=== PATIENT | male | born 1970 | race Caucasian/White ===

== ENCOUNTER 2020-02-25 14:37 | Outpatient (CLI) | payer BC, SELFPAY ==
--- NOTE | 2020-02-25 13:45 | DI.RAD_ITS ---
EXAM: XR ANKLE LT COMPLETE CLINICAL HISTORY: left ankle pain TECHNIQUE: 2D digital imaging was performed. COMPARISON: No exams were available for comparison FINDINGS: The ankle joint space is well maintained. There is minimal periarticular spurring. No talar dome de fect or ankle mortise widening is seen. A bone island is noted in the talus. IMPRESSION: Minimal degenerative changes.
== END 2020-02-25 14:57 ==
PROVIDERS: PCP Family Medicine; Referring Provider Family Medicine; Visit Provider Student in an Organized Health Care Education/Training Program
DX: M19.072 Primary osteoarthritis, left ankle and foot (principal); M25.572 Pain in left ankle and joints of left foot
CPT/HCPCS: 73610

== ENCOUNTER 2020-03-03 01:04 | Outpatient (CLI) | payer BC, SELFPAY ==
--- NOTE | 2020-03-03 08:50 | DI.MRI_ITS ---
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 TECHNIQUE: Multiplanar multisequence MRI was performed. COMPARISON: CR XR ANKLE LT COMPLETE from 02/25/2020 FINDINGS: MR examination of the ankle was performed according to the usual protocol. There is in area of abnormal bony signal involving the medial aspect of the talus beneath the talar d ome medially measuring up to about 15 x 20 by 20 millimeters in diameter. The overlying cortex appea rs intact. There are tiny subchondral cysts cysts noted, the largest measuring about 2 x 5 millimete rs in diameter. No definite cartilage defect seen involving the talus or adjoining tibia. No depres selina of the cortex of the talar dome. No other significant bony signal abnormality seen in the region of the ankle. Ligamentous structures of the ankle appear normal including the ligaments of the tibiotalar, talofibu lar, and tibiofibular joints. Subtalar joints and supporting ligamentous structures appear intact. No tendinous abnormality identified involving the medial, lateral, or anterior tendons. Achilles ten don and plantar fascia show normal signal No mass lesion or ganglion cyst seen in the region of the ankle. IMPRESSION: Osseous signal abnormality and mild subchondral cyst formation of the talar dome medially, no discrete cortical talar dome defect id entified. No defined articular cartilage abnormality. No other significant findings on examination of the ankle. DATA REPOSITORY:
== END 2020-03-03 01:24 ==
PROVIDERS: PCP Family Medicine; Visit Provider Student in an Organized Health Care Education/Training Program
DX: M95.8 Other specified acquired deformities of musculoskeletal system (principal); M85.672 Other cyst of bone, left ankle and foot
CPT/HCPCS: 73721

== ENCOUNTER 2020-07-28 19:06 | Outpatient (REF) | payer BC, SELFPAY ==
[2020-07-28 16:07] LABS: Hemoglobin A1C 4.9 % (<5.7)
[2020-07-28 16:20] LABS: Anion Gap 10.3 mmol/L (3-11); BUN 11 mg/dL (7-18); CO2 28.7 mmol/L (21.0-32.0); Calcium 9.4 mg/dL (8.5-10.1); Calculated LDL 90 mg/dL (<100); Chloride 103 mmol/L (98-107); Cholesterol 151 mg/dL (<200); Estimated GFR 49.54 (mL/min/1.73m2); Glucose 98 mg/dL (74-106); HDL Cholesterol 35 mg/dL (40-60); Sodium 142 mmol/L (136-145); TSH (W/Ref FT4) 0.72 uIU/mL (0.36-3.74); Triglyceride 130 mg/dL (<150)
[2020-07-28 22:46] LABS: PSA, Screening 0.7 ng/mL (0.0-3.5)
== END 2020-07-28 19:26 ==
LOC: NCHCN 19:06
PROVIDERS: PCP Family Medicine; Visit Provider Nurse Practitioner Family
DX: Z00.00 Encounter for general adult medical examination without abnormal findings (principal)
CPT/HCPCS: 80048; 80061; 84153; 83036; 84443

== ENCOUNTER 2020-08-07 10:52 | Outpatient (CLI) | payer BC, SELFPAY ==
--- NOTE | 2020-08-07 10:15 | DI.RAD_ITS ---
EXAM: XR THUMB LT CLINICAL HISTORY: pain. TECHNIQUE: 2D digital imaging was performed. COMPARISON: CR LEFT INDEX FINGER from 06/27/2012 FINDINGS: No evidence of fracture or dislocation. 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 This measures approximately 7 by 4 millimeters. No no lytic osseous les ions evident. IMPRESSION: DATA REPOSITORY: RADIATION DOSE DELIVERED:
== END 2020-08-07 11:12 ==
PROVIDERS: PCP Family Medicine; Visit Provider Physician Assistant Surgical
DX: M79.645 Pain in left finger(s) (principal); D16.12 Benign neoplasm of short bones of left upper limb
CPT/HCPCS: 73140

== ENCOUNTER 2020-08-26 01:54 | Outpatient (CLI) | payer BC, SELFPAY ==
--- NOTE | 2020-08-26 07:30 | DI.MRI_ITS ---
EXAM: MR LOWER JOINT LT WO CLINICAL HISTORY: Persistent pain,TALUS BONE MARROW LESION,TALUS CLOSED FX,OSTEOCHONDRAL DEFE TECHNIQUE: Multiplanar multisequence MRI was performed without intravenous contrast. COMPARISON: CR XR ANKLE LT COMPLETE from 02/25/2020 MR MR LOWER JOINT LT WO from 03/03/2020 FINDINGS: SKIN: There are 2 findings on the undersurface of the foot subcutaneous region. First the there is a gain noted susceptibility artifact on the plantar subcutaneous tissues located 4 centimetres anterior to the inferior aspect the calcaneus plantar fascia. This implies the presence of a foreign body at this level. Plain films recommended. Secondly, there is significant subcutaneous signal abnormality in the plantar fat pad subjacent to th e calcaneus which has increased from the prior study. There does not appear to be an obvious tract a lthough this does extend from the under surface of the calcaneus to the skin level. There is no abnormal intraosseous signal within the overlying calcaneus to suggest osteomyelitis nor significant thickening, tear, or signal abnormality in the plantar fascia which is at this level. BONES/JOINTS: Abnormality previously described in the medial talar dome is again noted. There multip le degenerative subarticular cyst at this level with subjacent bone edema in the talus again noted an d most medially there is some progression in the most medial aspect talar dome at this level which wi ll be at risk for developing an osteochondral defect. There is no signal abnormality in the lateral aspect of the talar dome nor in the malleoli nor more distally in the talus nor in the sustentacular talus, navicular, cuneiform and cuboid bones. Subtalar joint appears unremarkable. LIGAMENTS: The tibiofibular and calcaneofibular ligaments are intact. The anterior and posterior talo fibular ligaments are intact. The deltoid ligament is intact. SINUS TARSI: Interosseous ligament is intact. There is no loss of the normal fat signal in this space . MUSCULOTENDINOUS STRUCTURES: Achilles tendon: Unremarkable. No evidence of tear nor tendinitis/tendinosis. Plantar fascia: Unremarkable. No evidence of tear, abnormal thickening, nor abnormal nodularity. Anterior Extensor tendons: Unremarkable. Medial Tendons: Posterior Tibialis: Unremarkable. No tear or tenosynovitis evident. Flexor Digitorum longus: Unremarkable. No tear or tenosynovitis evident. Flexor Hallicus longus: Unremarkable. No tear or tenosynovitis evident. Lateral Tendons: Peroneus longus: Unremarkable. No tear nor tenosynovitis evident. Peroneus brevis:Unremarkable. No tear nor tenosynovitis evident. SOFT TISSUES: Abnormal findings as above OTHER FINDINGS: None. IMPRESSION: 1. Compared to the prior MRI of February 2020 there is increasing subcutaneous signal abnormality in th e plantar fat pad extending through the entire thickness of the fat pad at this level. Without an ob vious percutaneous tract at this exact level. There is also no obvious thick no abnormality nor thic kening of the plantar fascia itself at this level nor abnormal intraosseous signal in the inferior ca lcaneus nor calcaneal spur. Correlation with any prior injections at this site is recommended. There is no intraosseous signal to suggest osteomyelitis of the calcaneus. 2. Approximately 3-4 cm anterior to this is susceptibility artifact in the superficial subcutaneous t issue on the plantar aspect of the foot consistent with the presence of a significant foreign body. Recommend plain films to locate a subtle foreign body metallic density at this level. The abnormal p lantar fat pad signal appears separate from this foreign body. 3. No abnormality of the Achilles tendon evident. No tear of the plantar fascia. 4Increasing degenerative subarticular cyst in the medial talar dome. There is some intraosseous davidson a at this level also again noted which is confined to the medial talus at this level. There is no di stinct osteochondral defect at this level at this time. DATA REPOSITORY:
== END 2020-08-26 01:55 ==
LOC: DI 01:54
PROVIDERS: PCP Family Medicine; Visit Provider Student in an Organized Health Care Education/Training Program
DX: M95.8 Other specified acquired deformities of musculoskeletal system (principal); S92.102D Unspecified fracture of left talus, subsequent encounter for fracture with routine healing; M79.5 Residual foreign body in soft tissue
CPT/HCPCS: 73721

== ENCOUNTER 2020-10-14 02:57 | Outpatient (CLI) | payer BC, SELFPAY ==
[2020-10-14 10:08] LABS: Source Nasal/Nares
[2020-10-14 15:23] LABS: COVID-19 PCR Negative (Negative)
== END 2020-10-14 02:58 | disposition home or self-care (01) ==
LOC: LBO 02:57
PROVIDERS: Surgery; PCP Family Medicine; Visit Provider Physical Therapy Assistant
DX: Z20.822 Contact with and (suspected) exposure to COVID-19 (principal)
CPT/HCPCS: 87635

== ENCOUNTER 2020-10-16 06:21 | Day surgery (SDC) | payer BC, SELFPAY ==
[2020-10-16 06:20] VITALS: BP 135/75; PULSE 87; RESP 18; TEMP 36.4; O2SAT 98
[2020-10-16] MEDS: Lactated Ringers 1,000 ML 80 ML IV (06:48)
--- NOTE | 2020-10-16 07:58 | W.PM.DSUDISC ---
Discharge Plan Disposition Patient Disposition: HOME Condition: Good Discharge Details Reason For Visit: colon scope Attending Provider: Anisha Melendez Primary Care Provider: French Pearson Home Meds and New Rx's Prescriptions: Continued polyethylene glycol 3350 17 gram/dose powder 238 g PO ONCE Qty: 238 RF: 0 bisacodyl [Dulcolax (bisacodyl)] 5 mg tablet,delayed release (DR/EC) 5 mg PO ONCE Qty: 4 RF: 0 Discharge Instructions Additional Instructions: Findings:very few/very small divertic. incomplete- will need to do a barium enema Follow up: Please call if you develop: fevers >101.5 Nausea or Vomiting Abdominal pain that is not transient DAY SURGERY UNIT POST COLONOSCOPY INSTRUCTIONS 1. Because there will be medication in your system for the next 24 hours, you may feel a little sleepy. Your coordination will be affected. Therefore: a. Do not drive or operate dangerous equipment for 24 hours. b. Do not drink alcohol beverages for 24 hours (not even beer). c. Plan to go home and rest for the day. 2. Generally there are no restrictions on your activity after a day or so has gone by, but you may feel a bit fatigued for a few days. 3 After you arrive home you may have a light meal and return to a normal diet as you can tolerate it without feeling sick to your stomach. 4. After surgery, you may feel pain or discomfort. This should be only transient, but if it persists please contact your doctor. 5. If there are any questions regarding the findings of your procedure, please feel free to contact your doctor. 6. If you are unable to contact your doctor with a problem, contact the hospital at [phone]. 7. Continue all your regular medications unless directed otherwise. I understand the above instructions and have no questions. Signature of Patient or Responsible Adult Escort Date/Time Name of Responsible Adult Escort Signature of Nurse Date/Time Activity:: no lifting over 20#'s or strenuous acitivty x 24 hrs Diet:: small light meals x 24 hrs Discharge Orders Discharge Orders: Discharge Order (Routine); Ordered 10/16/20 Ordered By: Anisha Melendez DS: Diagnosis Discharge Diagnosis (1) Diverticula of colon: Status: Acute
--- NOTE | 2020-10-16 08:10 | W.COLOREPORT ---
Date of service: 10/16/20 Time of Service: 08:10 Colonoscopy Report Date of procedure: 10/16/20 Pre-op diagnosis general: CRC scree Post-op diagnosis procedure note: other (divertic ) Procedure: flex sig Surgeon: Anisha Melendez Anesthesia Type: General:No Airway Estimated blood loss (mL): 0 Pathology: none sent Complications: None Disposition: same day Prep: Miralax/Dulcolax Procedure Description: After informed consent was obtained the patient was taken to the procedure room and placed in a left decubitous position. Monitors were applied and a time out was done. The patients name, date of , procedure, allergies to medications and metal in their body was reviewed. The patient was then sedated. Once sedated and comfortable a rectal exam was done which shows external hemorrhoids. Internal exam revealed a normal sphincter tone and no palpable masses. The scope was then introduced and retrofelexed. Grade I internal hemorrhoids were identified. The prep was good. The scope is passed up to the sigmoid flexure. Unfortunately after multiple maneuvers, and repositing the pt to supine, I could not advance to scope through the splenic flexure. The scope was then slowly retracted back into the rectum. There were no polyps or AVMs visualized today. The mucosa is pink and healthy. He does have very few small scatered diverticula. The Scope was removed and the patient was woken up and taken back to Same day surgery in stable condition. The patient tolerated the procedure well and there were no immediate complications. Follow up: The patient needs to have a barium enema for completeness
[2020-10-16 08:35] VITALS: BP 122/80; PULSE 61; RESP 18; TEMP 36.3; O2SAT 100
== END 2020-10-16 09:05 | disposition home or self-care (01) ==
PROVIDERS: PCP Family Medicine; Visit Provider Surgery
PROC: 0DJD8ZZ Inspection of Lower Intestinal Tract, Via Natural or Artificial Opening Endoscopic (ICD-10-PCS; CPT 45378; principal; 2020-10-16 07:30)
DX: Z12.11 Encounter for screening for malignant neoplasm of colon (principal); K57.30 Diverticulosis of large intestine without perforation or abscess without bleeding
CPT/HCPCS: 45378; J2001

== ENCOUNTER 2020-11-11 02:05 | Outpatient (CLI) | payer BC, SELFPAY ==
--- NOTE | 2020-11-11 06:30 | DI.RAD_ITS ---
Exam(s) RF BARIUM ENEMA EXAM: RF BARIUM ENEMA CLINICAL HISTORY: incomplete CE,DIVERTICULA OF COLON,SCREENING FOR COLON CA COMPARISON: No exams were available for comparison TECHNIQUE: 2D and realtime digital imaging was performed. CONTRAST MATERIAL: Barium and air contrast was administered. FINDINGS: The colon demonstrates no structural abnormalities including stricture,dilation, adhesion, or mass. T here are scattered diverticula throughout the colon. No evidence of obstruction. The appendix is vi sualized. IMPRESSION: 1. Diverticulosis of the colon. 2. No evidence of obstruction or colonic mass. RADIATION DOSE DELIVERED: winifred Nesbitt=81.9 mGy
== END 2020-11-11 02:25 ==
PROVIDERS: PCP Nurse Practitioner Family; Visit Provider Surgery
DX: K57.30 Diverticulosis of large intestine without perforation or abscess without bleeding (principal); Z12.11 Encounter for screening for malignant neoplasm of colon
CPT/HCPCS: 74270

== ENCOUNTER 2021-08-24 11:55 | Outpatient (CLI) | payer BC, SELFPAY ==
--- NOTE | 2021-08-24 11:45 | RT.EKG_ITS ---
APPROVED REPORT Exam: Resting ECG Reason for Exam: tachycardia Patient Location: O HR:62 bpm ECG Measurements Heart Rate 62 AXIS OR 139 P 67 QRSd 78 QRS 68 QT 425 T 50 QTc 432 Conclusion Sinus rhythm...normal P axis, V-rate 60- 99 Probable left ventricular hypertrophy...multiple LVH criteria ST elev, probable normal early repol pattern...ST elevation, age<55
== END 2021-08-24 11:56 | disposition home or self-care (01) ==
LOC: DI.CM 11:57
PROVIDERS: PCP Nurse Practitioner Family; Visit Provider Family Medicine
DX: R00.0 Tachycardia, unspecified (principal)
CPT/HCPCS: 93010

== ENCOUNTER 2021-08-31 03:57 | Outpatient (CLI) | payer BC, SELFPAY ==
[2021-08-31 09:08] LABS: HGB 14.9 g/dL (13.5-17.5); MCH 29.9 pg (27.0-33.0); MCHC 33.9 % (32.0-36.0); MCV 88.4 fL (80-95); MPV 9.4 fL (8.0-11.0); Platelet Count 189 10^3/uL (130-400); RBC 4.98 10^6/uL (4.36-5.78); RDW 12.5 % (11.8-14.1); RDW-SD 40.7 fL; WBC 5.91 10^3/uL (4.4-10.8)
[2021-08-31 09:09] LABS: Bilirubin Negative (Negative); Blood Negative (Negative); Clarity Clear (Clear); Glucose Negative (Negative); Ketones Negative (Negative); Leukocyte Esterase Negative (Negative); Nitrite Negative (Negative); Specific Gravity 1.025 (1.005-1.025); Urobilinogen 0.2 EU/dL (Up TO 0.2)
[2021-08-31 10:42] LABS: ALT 28 U/L (16-63); AST 24 U/L (15-37); Albumin 4.2 g/dL (3.4-5.0); Alkaline Phosphatase 89 U/L (46-116); Anion Gap 7.1 mmol/L (3-11); BUN 17 mg/dL (7-18); Bilirubin, Total 1.1 mg/dL (0.2-1.0); CO2 31.9 mmol/L (21.0-32.0); CREATININE 1.4 mg/dL (0.70-1.30); Calcium 9.1 mg/dL (8.5-10.1); Calculated LDL 107 mg/dL (<100); Chloride 104 mmol/L (98-107); Cholesterol 163 mg/dL (<200); Estimated GFR 53.43 (mL/min/1.73m2); Glucose 87 mg/dL (74-106); HDL Cholesterol 47 mg/dL (40-60); Potassium 4.1 mmol/L (3.5-5.1); Sodium 143 mmol/L (136-145); TSH (W/Ref FT4) 1.02 uIU/mL (0.36-3.74); Total Protein 6.7 g/dL (6.4-8.2); Triglyceride 49 mg/dL (<150)
[2021-09-01 10:01] LABS: Hepatitis C Ab w Rflx HCV PCR Negative (Negative)
== END 2021-08-31 03:58 | disposition home or self-care (01) ==
LOC: LBO 03:57
PROVIDERS: PCP Nurse Practitioner Family; Visit Provider Family Medicine
DX: R00.0 Tachycardia, unspecified (principal); Z11.59 Encounter for screening for other viral diseases; Z13.6 Encounter for screening for cardiovascular disorders; R79.89 Other specified abnormal findings of blood chemistry; I10 Essential (primary) hypertension
CPT/HCPCS: 36415; 80053; 80061; 85027; 86803; 81003; 84443

== ENCOUNTER 2023-01-30 09:05 | Outpatient (CLI) | payer BC, SELFPAY ==
[2023-01-30 12:17] LABS: Abs Immature Grans 0.01 10^3/uL (0.0-0.06); Absolute Basophil Count 0.01 10^3/uL (0.0-0.2); Absolute Eosinophil Count 0.01 10^3/uL (0.0-0.7); Absolute Lymphocyte Count 0.44 10^3/uL (1.2-3.4); Absolute Monocyte Count 0.12 10^3/uL (0.1-0.8); Absolute Neutrophil Count 1.72 10^3/uL (1.2-6.7); Basophils % 0.4; Eosinophils % 0.4; HCT 40.8 % (40.0-50.0); HGB 13.9 g/dL (13.5-17.5); Immature Grans % 0.4; MCH 30.3 pg (27.0-33.0); MCHC 34.1 % (32.0-36.0); MCV 89 fL (80-95); MPV 10.2 fL (8.0-11.0); Monocytes % 5.2; Neutrophils % 74.6; RBC 4.58 10^6/uL (4.36-5.78); RDW 12.1 % (11.8-14.1); RDW-SD 39.6 fL; WBC 2.31 10^3/uL (4.4-10.8)
[2023-01-30 12:31] LABS: Diff Comment Diff Reviewed; Platelet Count 85 10^3/uL (130-400); RBC Morphology Normal
[2023-01-30 12:35] LABS: ALT 42 U/L (16-63); AST 32 U/L (15-37); Albumin 3.7 g/dL (3.4-5.0); Alkaline Phosphatase 93 U/L (46-116); Anion Gap 6.5 mmol/L (3-11); BUN 9 mg/dL (7-18); Bilirubin, Total 0.9 mg/dL (0.2-1.0); CO2 29.5 mmol/L (21.0-32.0); CREATININE 1.4 mg/dL (0.70-1.30); Calcium 8.4 mg/dL (8.5-10.1); Chloride 106 mmol/L (98-107); Estimated GFR 60.47 (mL/min/1.73m2); Glucose 115 mg/dL (74-106); Sodium 142 mmol/L (136-145); Total Protein 6.4 g/dL (6.4-8.2)
[2023-01-30 18:17] LABS: PSA, Screening 0.6 ng/mL (<=3.5)
[2023-01-31 10:37] LABS: Lyme Ab w Rflx to Lyme Confirm Negative (Negative)
[2023-02-02 10:03] LABS: B. miyamotoi PCR Negative (Negative); Babesia divergens/MO-1 Negative (Negative); Babesia duncani Negative (Negative); Babesia microti Negative (Negative); Ehrlichia chaffeensis Negative (Negative); Ehrlichia ewingii/canis Negative (Negative); Ehrlichia muris eauclairensis Negative (Negative)
[2023-02-02 10:55] LABS: Anaplasma phagocytophilum Positive (Negative)
== END 2023-01-30 09:06 | disposition home or self-care (01) ==
LOC: LOS 09:05
PROVIDERS: PCP Nurse Practitioner Family; Referring Provider Nurse Practitioner Family; Visit Provider Nurse Practitioner Family
DX: M54.50 Low back pain, unspecified (principal); R50.9 Fever, unspecified; N40.0 Benign prostatic hyperplasia without lower urinary tract symptoms
CPT/HCPCS: 36415; 80048; 80053; 84153; 87798; 85025; 86618

== ENCOUNTER 2023-01-30 22:57 | Outpatient (CLI) | payer BC, SELFPAY ==
--- NOTE | 2023-01-30 09:15 | DI.RAD_ITS ---
Exam(s) XR LUMBAR SPINE COMPLETE EXAM: XR LUMBAR SPINE COMPLETE CLINICAL HISTORY: acute back pain with fever, M54.9. TECHNIQUE: 2D digital imaging was performed of the lumbar spine. Five images were obtained. AP, la teral, right oblique, left oblique and L5-S1 spot views were obtained. COMPARISON: CR LUMBAR SPINE COMPLETE from 10/05/2013 FINDINGS: BONES: No fracture or destructive lesion. There are endplate osteophytes at multiple levels of the luis antonio mbar spine. No facet hypertrophy identified. DISKS: There is mild disc space narrowing at L2-L3 ALIGNMENT: There is a mild right convex curvature of the lumbar spine. No spondylolysis or spondylol isthesis. SOFT TISSUE: Normal. IMPRESSION: Degenerative changes are seen in the lumbar spine. No destructive changes are seen. DATA REPOSITORY: RADIATION DOSE DELIVERED:
== END 2023-01-30 23:17 ==
LOC: DI 22:58
PROVIDERS: PCP Nurse Practitioner Family; Visit Provider Nurse Practitioner Family
DX: M54.9 Dorsalgia, unspecified (principal); M51.36 Other intervertebral disc degeneration, lumbar region
CPT/HCPCS: 72110

== ENCOUNTER 2023-02-07 08:59 | Emergency (ER) | payer BC, SELFPAY ==
--- NOTE | 2023-02-07 09:00 | DI.CT_ITS ---
Exam(s) CT ABDOMEN PELVIS WO EXAM: CT ABDOMEN PELVIS WO CLINICAL HISTORY: left flank pain, r/o stone. TECHNIQUE: Imaging Protocol: Axial computed tomography images with coronal and sagittal reformatted images were created and reviewed. Oral: no COMPARISON: No exams were available for comparison FINDINGS: ABDOMEN: Lung Bases: Normal where visualized. Liver: Normal density. No measurable mass. Gallbladder and biliary tract: No radiodense calculus or dilation. Pancreas: Normal density, no abnormal calcifications or inflammatory process. Spleen: Normal. Kidneys: Normal size, contour and axis. Multiple tiny punctate nonobstructing stones in both kidneys. Mild left hydronephrosis secondary to a 4 millimeter stone just above the level of the ureterovesic al junction. No masses seen. Adrenal glands: No masses seen. Lymph nodes: Within normal limits. Abdominal Aorta: Abdominal portion non-dilated. PELVIS: Bladder: Nearly empty. Not well evaluated. No gross wall thickening. Bowel: No obstruction or bowel wall thickening. Appendix normal. Peritoneal cavity: No ascites, collection or mesenteric inflammatory response. Reproductive organs: Within normal limits. Bones: Unremarkable for age. IMPRESSION: Mild left hydronephrosis secondary to a 4 millimeter stone just above the ureterovesical junction. Multiple tiny nonobstructing stones are noted in both kidneys. RADIATION DOSE DELIVERED: 585.22mGy.cm Total DLP DATA REPOSITORY: All CT scans at this facility are submitted to the National Radiology Data Registry (NRDR) Dose Index Registry (DIR) with the [employer] ([employer]). RADIATION OPTIMIZATION: All CT scans at this facility use at least one of these dose optimization te chniques: automated exposure control; mA and/or kV adjustment per patient size (includes targeted exa ms where dose is matched to clinical indication); or iterative reconstruction.
[2023-02-07 09:02] VITALS: BP 123/80; PULSE 80; RESP 18; TEMP 35.9; O2SAT 100
--- NOTE | 2023-02-07 09:09 | W.ED.GENAD ---
Discharge Plan Disposition Patient Disposition: Home Condition: Good Discharge Details Clinical Impression: Kidney stone Primary Care Provider: Fernie Julian ED Provider: Angel Mao Home Meds and New Rx's Prescriptions: New ketorolac 10 mg tablet 10 mg PO TID 5 Days Qty: 15 0RF No Action tamsulosin [Flomax] 0.4 mg capsule 0.4 mg PO DAILY Qty: 90 4RF doxycycline hyclate 100 mg tablet 100 mg PO BID Qty: 20 0RF Discharge Instructions Instructions: Kidney Stones (ED) Additional Instructions: At this time you have evidence of a small kidney stone. This is likely the cause of your symptoms. This should pass within the next 12 to 48 hours, if not earlier. Please drink plenty of fluids, 10 to 12 cups/day at least. Please take the Toradol as directed which has been sent to your pharmacy and 1000 mg of Tylenol every 6 hours as needed for pain. These are the maximum doses of these medicines. Please take the Flomax as directed. This will help in expediting the passage of your kidney stone. If your pain stops, you can stop taking the Flomax. Please strain your urine to collect the stone. This can then be analyzed by your family doctor. If you do not have resolution of your symptoms after 48 to 72 hours please follow-up closely with your family doctor or return here for reassessment. If you notice any worsening of your symptoms, or any new symptoms such as inability to urinate, vomiting, diarrhea, fever, chills, shortness of breath, chest pain, numbness, weakness, or fainting , please return immediately to the emergency department for reevaluation. Please follow up with your primary care provider as soon as possible for reassessment and reevaluation. As always, it was a pleasure participating in your medical care today. 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 He states that it feels identical to his previous kidney stone. He denies any fever or chills. He does admit to a feeling of constant urgency for urination. He denies seeing any blood in his urine. He has not taken anything for the pain. No other complaints at this time. No other modifying factors. Physical exam demonstrates no flank or CVA tenderness. No abdominal tenderness. No guarding or rebound. No genital tenderness. Symptoms appear concerning for kidney stone. Differential also includes diverticulitis but this is less likely. We will give Toradol, Tylenol, get a CT renal study, monitor closely reassess gently rehydrate and give Flomax. 10:[address] scan shows evidence of a 4 mm kidney stone. Laboratory work-up has returned, renal function stable at baseline. Urinalysis negative for evidence of infection. On reassessment patient has near complete resolution of his pain. He feels well and feels comfortable going home. Will give prescription for Toradol at home as well as recommendation for continued Flomax. Will give urine strainer for home for stone urinalysis/analysis. Discussed red flags which to return. I have extensively reviewed the treatment plan and discharge instructions with the patient. I have addressed all patient concerns at this time. The patient was made aware of what symptoms to monitor for that would warrant a return to the emergency department. Discussed the plan with the patient, they demonstrate verbal understanding and agreement with our assessment and plan at this time. The documentation in this chart was dictated using [employer] dictation software. Please excuse any dictation errors. INDINGS: ABDOMEN: Lung Bases: Normal where visualized. Liver: Normal density. No measurable mass. Gallbladder and biliary tract: No radiodense calculus or dilation. Pancreas: Normal density, no abnormal calcifications or inflammatory process. Spleen: Normal. Kidneys: Normal size, contour and axis. Multiple tiny punctate nonobstructing stones in both kidneys. Mild left hydronephrosis secondary to a 4 millimeter stone just above the level of the ureterovesical junction. No masses seen. Adrenal glands: No masses seen. Lymph nodes: Within normal limits. Abdominal Aorta: Abdominal portion non-dilated. PELVIS: Bladder: Nearly empty. Not well evaluated. No gross wall thickening. Bowel: No obstruction or bowel wall thickening. Appendix normal. Peritoneal cavity: No ascites, collection or mesenteric inflammatory response. Reproductive organs: Within normal limits. Bones: Unremarkable for age. IMPRESSION: Mild left hydronephrosis secondary to a 4 millimeter stone just above the ureterovesical junction. Multiple tiny nonobstructing stones are noted in both kidneys. HPI General Date/Time Provider Initiated Documentation: 02/07/23 09:00. 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 He states that it feels identical to his previous kidney stone. He denies any fever or chills. He does admit to a feeling of constant urgency for urination. He denies seeing any blood in his urine. He has not taken anything for the pain. No other complaints at this time. No other modifying factors. Related Data Home Medications Medication Instructions Recorded Confirmed tamsulosin 0.4 mg capsule (Flomax) 0.4 mg PO DAILY #90 caps 01/11/22 02/07/23 doxycycline hyclate 100 mg tablet 100 mg PO BID #20 tabs 02/02/23 02/07/23 ketorolac 10 mg tablet 10 mg PO TID 5 days #15 tabs 02/07/23 Previous Rx's Medication Instructions Recorded tamsulosin 0.4 mg capsule (Flomax) 0.4 mg PO DAILY #90 caps 01/11/22 doxycycline hyclate 100 mg tablet 100 mg PO BID #20 tabs 02/02/23 ketorolac 10 mg tablet 10 mg PO TID 5 days #15 tabs 02/07/23 Allergies Allergy/AdvReac Type Severity Reaction Status Date / Time No Known Allergies Allergy Verified 02/07/23 09:07 General Stated Complaint: Urinary DEWEY: 3 Review of Systems All systems reviewed & are unremarkable except as noted in HPI and below [facility] All Active Problems (Updated 02/07/23 @ 10:06 by Angel Mao DO) Kidney stone (Chronic) Anaplasmosis (Acute ~01/2023) Restless leg syndrome (Acute) Uses canibus to control. Stage 3a chronic kidney disease (Acute) 08/2021, Cr-1.4 Tachycardia (Acute) Saw farm crops teacher in [facility] who is not concerned. 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 Father BPH (benign prostatic hypertrophy) Alcohol abuse Sister No problems noted. Brother No problems noted. Maternal Grandfather , AGE 80 No problems noted. Paternal Grandfather , AGE 66 Alcohol abuse Maternal Grandmother , AGE 84 No problems noted. Paternal Grandmother , AGE 72 No problems noted. Son No problems noted. Daughter No problems noted. Daughter No problems noted. 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 Pets and animals: Yes Pets and animals: cat(s) and dog(s) Sexually active: Yes Current gender identity: male What is your relationship status?: How often do you talk on the phone with friends or family?: three or more times per week How often do you get together with friends or relatives?: once per week How often do you attend denominational or orthodoxy services?: decline to answer Do you belong to any clubs or organized social groups?: no Panel score (0-1 are the most socially isolated patients): 2 What type of physical activity do you participate in: running Duration: 45-60 minutes/day Frequency: 5-6 times per week Karina/Yazdanism: None Special karina needs: No Seatbelt use: always Helmet use: Yes Helmet use: always Drive intox or ride w/intox substitute bus driver: No Do you feel safe at home: Yes Do you feel safe in your relationship?: Yes Exam Narrative Exam Narrative: 1.Const: Well-nourished, Well-developed, appearing stated age 2.Eyes: PERRL, no conjunctival injection, and symmetrical lids. 3.ENT: Atraumatic external nose and ears. Moist MM. Neck: Symmetric, trachea midline, No thyromegaly. 4.CVS: +S1/S2, No murmurs or gallops. Peripheral pulses 2+ and equal in all extremities. Brisk capillary refill in all extremities. 5.RESP: Unlabored respiratory effort. Clear to auscultation bilaterally. No wheezes rales or rhonchi 6.GI: Soft, Nontender/Nondistended, No hepatosplenomegaly. No guarding or rebound. No flank or CVA tenderness. No genital tenderness on palpation. 7.MSK: Normocephalic/Atraumatic, Extremities w/o deformity or ttp No cyanosis or clubbing, Normal movement of all extremities 8.Skin: Warm, Dry. No rashes or lesions. 9.Neuro: dispatcher maintenance II-XII grossly intact. Sensation grossly intact, no focal neurologic deficits. 10.Psych: (AAO) x3. Appropriate mood and affect Course Vital Signs Vital signs: Vital Signs Temperature 35.9 C L 02/07/23 09:02 Pulse 80 02/07/23 09:02 Respiratory Rate 18 02/07/23 09:02 Blood Pressure 123/80 02/07/23 09:02 Pulse Oximetry 100 02/07/23 09:02 Temperature 35.9 C L 02/07/23 09:02 Temperature Source Tympanic 02/07/23 09:02 Pulse 80 02/07/23 09:02 Respiratory Rate 18 02/07/23 09:02 Blood Pressure 123/80 02/07/23 09:02 Blood Pressure Position Sitting 02/07/23 09:02 Pulse Oximetry 100 02/07/23 09:02 Oxygen Delivery Method Room Air 02/07/23 09:02 Oxygen Flow Rate 0 02/07/23 09:02 Pain Level 5 02/07/23 09:02
[2023-02-07 09:42] LABS: Abs Immature Grans 0.04 10^3/uL (0.0-0.06); Absolute Basophil Count 0.03 10^3/uL (0.0-0.2); Absolute Eosinophil Count 0.04 10^3/uL (0.0-0.7); Absolute Monocyte Count 0.36 10^3/uL (0.1-0.8); Basophils % 0.5; Eosinophils % 0.7; HCT 38.1 % (40.0-50.0); HGB 13.2 g/dL (13.5-17.5); Immature Grans % 0.7; Lymphocytes % 34.6; MCH 30.2 pg (27.0-33.0); MCHC 34.6 % (32.0-36.0); MCV 87 fL (80-95); MPV 8.9 fL (8.0-11.0); Monocytes % 5.9; Neutrophils % 57.6; Platelet Count 287 10^3/uL (130-400); RBC 4.37 10^6/uL (4.36-5.78); RDW-SD 38.2 fL; WBC 6.07 10^3/uL (4.4-10.8)
[2023-02-07] MEDS: Ketorolac 15 MG/ML VIAL IVP (09:47)
[2023-02-07] MEDS: Tamsulosin 0.4 MG CAPCR PO (09:47)
[2023-02-07] MEDS: Normal Saline 1,000 ML 1000 ML IV (09:48)
[2023-02-07] MEDS: ACETAMINOPHEN 1,000 MG/100 ML BTL 400 MG IVPB (09:57)
[2023-02-07 10:00] LABS: ALT 44 U/L (16-63); AST 20 U/L (15-37); Alkaline Phosphatase 115 U/L (46-116); Anion Gap 7.5 mmol/L (3-11); BUN 15 mg/dL (7-18); Bilirubin, Total 0.5 mg/dL (0.2-1.0); CO2 30.5 mmol/L (21.0-32.0); CREATININE 1.4 mg/dL (0.70-1.30); Calcium 8.9 mg/dL (8.5-10.1); Chloride 104 mmol/L (98-107); Estimated GFR 60.47 (mL/min/1.73m2); Glucose 119 mg/dL (74-106); Potassium 3.7 mmol/L (3.5-5.1); Sodium 142 mmol/L (136-145)
[2023-02-07 10:21] LABS: Bilirubin Negative (Negative); Blood Large (Negative); Clarity Clear (Clear); Glucose Negative (Negative); Ketones Negative (Negative); Leukocyte Esterase Negative (Negative); Nitrite Negative (Negative); Specific Gravity >= 1.030 (1.005-1.025); Urobilinogen 0.2 mg/dL (Up to 0.2); pH 5.5 (5-8)
[2023-02-07 10:31] LABS: WBC 0-2 HPF (0-5)
[2023-02-07 10:32] LABS: Bacteria Rare HPF (Negative); C & S Indicated? No; Casts 0-2 Coarse Granular LPF (Negative); Crystals Negative HPF (Negative); Epithelial Cells Negative HPF (Negative); Mucus Negative (Negative); Other Cells Negative (Negative); RBC >50 HPF (0-2)
[2023-02-07 10:57] VITALS: TEMP 35.9
== END 2023-02-07 11:10 | disposition home or self-care (01) ==
PROVIDERS: Emergency Provider Student in an Organized Health Care Education/Training Program; PCP Nurse Practitioner Family
DX: R10.32 Left lower quadrant pain (principal); R30.0 Dysuria; N13.2 Hydronephrosis with renal and ureteral calculous obstruction; N18.31 Chronic kidney disease, stage 3a; A79.82 Anaplasmosis [A. phagocytophilum]
CPT/HCPCS: 80053; 74176; 81003; 81015; 85025; J0131; J1885

== ENCOUNTER 2023-02-08 04:21 | Emergency (ER) | payer BC, SELFPAY ==
[2023-02-08 04:24] VITALS: BP 137/80; PULSE 54; TEMP 36.8; O2SAT 98
[2023-02-08] MEDS: Ketorolac 15 MG/ML VIAL IVP ×2 (04:35→05:00)
[2023-02-08] MEDS: Normal Saline 1,000 ML 1000 ML IV ×2 (04:35→05:15)
--- NOTE | 2023-02-08 04:35 | ED.GENADUL_ITS ---
Discharge Plan Disposition Patient Disposition: Home Discharge Details Clinical Impression: Acute flank pain, Kidney stone Primary Care Provider: Fernie Julian ED Provider: Pete Hernandez Home Meds and New Rx's Prescriptions: New oxycodone 5 mg tablet 5 mg PO Q6H PRNQty: 9 0RF ondansetron 4 mg tablet,disintegrating 4 mg PO Q8H PRN (Reason: nausea and vomiting) Qty: 14 0RF No Action tamsulosin [Flomax] 0.4 mg capsule 0.4 mg PO DAILY Qty: 90 4RF doxycycline hyclate 100 mg tablet 100 mg PO BID Qty: 20 0RF ketorolac 10 mg tablet 10 mg PO TID 5 Days Qty: 15 0RF Discharge Instructions Instructions: Kidney Stones (ED) Additional Instructions: You were seen in the emergency department for belly and flank pain. We repeated some labs that were unremarkable. Symptoms improved with some medications and fluids here. I have given you a prescription for oxycodone that you could take for pain. I gave you a prescription for Zofran which you can take for your nausea or vomiting. Take the oxycodone for breakthrough pain before the Tylenol and ibuprofen or ketorolac. Please return if you develop decreased urination, worsening pain, high fevers or chills, or any other symptoms that are worrisome to you. Referrals: Fernie Julian, FIBER TECHNOLOGIST [Primary Care Provider] - 1 week Lupillo Flores MD [ [facility] STAFF PHYSICIAN] - 1 week Medical Decision Making 52-year-old male presents with left flank pain. Likely worsening kidney stone pain. Has a 4 mm stone at the ureterovesical junction on the left. At this size it should pass spontaneously. Took some Flomax. We will give some IV fluids and analgesia to help the patient now. We will treat his nausea additionally. We will get some repeat labs to look for signs of worsening renal dysfunction or other electrolyte or metabolic derangements that could be contributing. We will check urinalysis to look for any signs of developing UTI though I do doubt this diagnosis. I recommend we hold off on a CT scan to try and treat his pain first and he is agreeable with this plan. Will await initial testing and response to therapy and reevaluate. 602am recheck Labs unremarkable. Patient's pain is resolved. Feels better and would like to leave. Will send prescription for oxycodone to take for breakthrough pain. Told him to take this for acute pain before taking Tylenol or ibuprofen. He is agreeable with this plan. Will give referral to urology. Will discharge with return precautions. Medical Records Medical records reviewed: Yes I reviewed the patient's medical records. Lab Data Lab results reviewed: Yes I reviewed the patient's lab results. Lab results narrative: unremarkable HPI General Mode of arrival: ambulatory . Date/Time Provider Initiated Documentation: 02/08/23 04:27 . Limitations to Documentation: no limitations . Information obtained by: patient . HPI Narrative: 52-year-old male presents with left flank pain. Was seen yesterday morning for similar pain. Diagnosed with a 4 mm kidney stone. He has had these in the past and they have all resolved spontaneously and he is never needed surgery or any intervention. He has been taking the Toradol and did take a dose of Flomax. He said the pain got worse this worry and he was nauseous so he ended up coming here. Denies any other complaints. Related Data Home Medications Medication Instructions Recorded Confirmed tamsulosin 0.4 mg capsule (Flomax) 0.4 mg PO DAILY #90 caps 01/11/22 02/07/23 doxycycline hyclate 100 mg tablet 100 mg PO BID #20 tabs 02/02/23 02/07/23 ketorolac 10 mg tablet 10 mg PO TID 5 days #15 tabs 02/07/23 ondansetron 4 mg disintegrating 4 mg PO Q8H PRN nausea and 02/08/23 tablet vomiting #14 tabs oxycodone 5 mg tablet 5 mg PO Q6H PRN #9 tabs 02/08/23 Previous Rx's Medication Instructions Recorded tamsulosin 0.4 mg capsule (Flomax) 0.4 mg PO DAILY #90 caps 01/11/22 doxycycline hyclate 100 mg tablet 100 mg PO BID #20 tabs 02/02/23 ketorolac 10 mg tablet 10 mg PO TID 5 days #15 tabs 02/07/23 ondansetron 4 mg disintegrating 4 mg PO Q8H PRN nausea and 02/08/23 tablet vomiting #14 tabs oxycodone 5 mg tablet 5 mg PO Q6H PRN #9 tabs 02/08/23 Allergies Allergy/AdvReac Type Severity Reaction Status Date / Time No Known Allergies Allergy Verified 02/07/23 09:07 General Stated Complaint: Abd Prob DEWEY: 2 Review of Systems Constitutional Constitutional: Denies chills, Denies fever(s) and Denies headache(s) Eyes Eyes: Denies change in vision ENT Ears, Nose, Mouth, and Throat: Denies headache(s) and Denies odynophagia Cardiovascular Cardiovascular: Denies chest pain and Denies dyspnea Respiratory Respiratory: Denies dyspnea Gastrointestinal Gastrointestinal: Denies abdominal pain, Denies diarrhea, Reports nausea, Denies odynophagia, Reports vomiting and Reports other (left flank pain) Genitourinary Genitourinary: Denies dysuria, Denies urinary frequency, Denies urinary hesitancy and Denies urinary urgency Musculoskeletal Musculoskeletal: Denies myalgias Integumentary/Breasts Skin/Breast: Denies changing lesions Neurologic Neurologic: Denies behavioral changes and Denies headache(s) Psychiatric Psychiatric: Denies behavioral changes Endocrine Endocrine: Denies heat intolerance Hematologic/Lymphatic Hematologic/Lymphatic: Denies lymphadenopathy [facility] All Active Problems (Updated 02/08/23 @ 06:03 by Pete Hernandez MD) Kidney stone (Chronic) Acute flank pain (Acute) Kidney stone (Chronic) Anaplasmosis (Acute ~01/2023) Restless leg syndrome (Acute) Uses canibus to control. Stage 3a chronic kidney disease (Acute) 08/2021, Cr-1.4 Tachycardia (Acute) Saw aviation mechanic in [facility] who is not concerned. 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 Hx of fracture of ankle Left Left wrist fracture Osteochondral defect of talus (~12/2017) Repaired by surgery in 2020 Posterior dislocation of shoulder joint Surgical History Jeff's Neuroma Rem[place] [place] Venipuncture 05/23/16[place] [place] [facility] Family History Mother No problems noted. Father BPH (benign prostatic hypertrophy) Alcohol abuse Sister No problems noted. Brother No problems noted. Maternal Grandfather , AGE 80 No problems noted. Paternal Grandfather , AGE 66 Alcohol abuse Maternal Grandmother , AGE 84 No problems noted. Paternal Grandmother , AGE 72 No problems noted. Son No problems noted. Daughter No problems noted. Daughter No problems noted. 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 Pets and animals: Yes Pets and animals: cat(s) and dog(s) Sexually active: Yes Current gender identity: male What is your relationship status?: How often do you talk on the phone with friends or family?: three or more times per week How often do you get together with friends or relatives?: once per week How often do you attend samaritan or lutheran services?: decline to answer Do you belong to any clubs or organized social groups?: no Panel score (0-1 are the most socially isolated patients): 2 What type of physical activity do you participate in: running Duration: 45-60 minutes/day Frequency: 5-6 times per week Karina/Gnosticist: None Special karina needs: No Seatbelt use: always Helmet use: Yes Helmet use: always Drive intox or ride w/intox diesel pile driver operator: No Do you feel safe at home: Yes Do you feel safe in your relationship?: Yes Exam Const General: cooperative Nutritional Appearance: average body habitus Orientation: alert, awake and oriented x3 HENMT Head: normal to inspection Ears: external ears normal Mouth: moist mucous membranes Eyes Pupils: PERRL EOM: EOM intact bilaterally and No nystagmus Neck Neck: full ROM and no tracheal deviation Chest Chest: normal inspection of the chest Resp Auscultation: clear to auscultation bilaterally Cardio Rate: regular rate Rhythm: regular rhythm GI Inspection: normal to inspection Palpation: soft, no guarding, not rigid and nontender Back/Spine/Pelvis Back: No no CVA tenderness Thoracic/Lumbar Spine: thoracic and lumbar spine normal to inspection Skin General skin exam: no rashes or lesions noted Neuro General: patient alert, patient awake and patient oriented x3 Cranial Nerves: CN's II-XI intact bilaterally, PERRL and no nystagmus Cognition: normal cognition Motor: muscle tone normal throughout and strength 5/5 throughout Sensory Exam: no sensory deficits noted Extrem General: normal to inspection Course Vital Signs Vital signs: Vital Signs Temperature 36.8 C 02/08/23 04:24 Pulse 54 L 02/08/23 04:24 Blood Pressure 137/80 02/08/23 04:24 Pulse Oximetry 98 02/08/23 04:24 Temperature 36.8 C 02/08/23 04:24 Temperature Source Oral 02/08/23 04:24 Pulse 54 L 02/08/23 04:24 Respiratory Effort Normal, Non-Labored 02/08/23 04:27 Blood Pressure 137/80 02/08/23 04:24 Pulse Oximetry 98 02/08/23 04:24 Oxygen Delivery Method Room Air 02/08/23 04:24 Oxygen Flow Rate 0 02/08/23 04:24 Pain Level 8 02/08/23 04:24
[2023-02-08] MEDS: Ondansetron 4 MG/2 ML VIAL IVP (04:36)
[2023-02-08 04:38] LABS: Abs Immature Grans 0.12 10^3/uL (0.0-0.06); Absolute Basophil Count 0.02 10^3/uL (0.0-0.2); Basophils % 0.2; Eosinophils % 0.4; HCT 36.1 % (40.0-50.0); HGB 12.5 g/dL (13.5-17.5); Immature Grans % 1.1; Lymphocytes % 17.3; MCH 30.3 pg (27.0-33.0); MCHC 34.6 % (32.0-36.0); MCV 87 fL (80-95); MPV 9.1 fL (8.0-11.0); Monocytes % 6.2; Neutrophils % 74.8; Platelet Count 267 10^3/uL (130-400); RBC 4.13 10^6/uL (4.36-5.78); RDW 12.2 % (11.8-14.1); RDW-SD 38.9 fL; WBC 11.36 10^3/uL (4.4-10.8)
[2023-02-08 04:40] LABS: Absolute Eosinophil Count 0.05 10^3/uL (0.0-0.7); Absolute Lymphocyte Count 1.97 10^3/uL (1.2-3.4)
[2023-02-08 04:58] LABS: ALT 35 U/L (16-63); AST 17 U/L (15-37); Albumin 3.6 g/dL (3.4-5.0); Alkaline Phosphatase 112 U/L (46-116); Anion Gap 6.5 mmol/L (3-11); BUN 12 mg/dL (7-18); Bilirubin, Total 0.4 mg/dL (0.2-1.0); CO2 28.5 mmol/L (21.0-32.0); CREATININE 1.8 mg/dL (0.70-1.30); Calcium 8.2 mg/dL (8.5-10.1); Chloride 106 mmol/L (98-107); Estimated GFR 44.73 (mL/min/1.73m2); Glucose 121 mg/dL (74-106); Lipase 37 U/L (16-77); Magnesium 1.9 mg/dL (1.8-2.4); Potassium 3.6 mmol/L (3.5-5.1); Sodium 141 mmol/L (136-145); Total Protein 6.4 g/dL (6.4-8.2)
[2023-02-08] MEDS: MORPHine 4 MG/ML SYR IVP (05:02)
--- NOTE | 2023-02-08 05:18 | NUR.NOTE ---
Nursing Note: After giving 4mg of IVP Morphine and a second 15mg IVP dose of toradol Pt's pain level has come down from a 7/10 to a 3/10. Second Liter of NS Bolus started as well. Call multani at bedside when RN left room.
[2023-02-08 06:34] VITALS: BP 107/74; PULSE 61; RESP 17; TEMP 36.6; O2SAT 98
== END 2023-02-08 06:47 | disposition home or self-care (01) ==
PROVIDERS: Emergency Provider Student in an Organized Health Care Education/Training Program; PCP Nurse Practitioner Family
DX: N20.0 Calculus of kidney (principal); R11.10 Vomiting, unspecified
CPT/HCPCS: 80053; 83690; 96361; 96374; 96375; 96376; 99284; 83735; 85025; J1885; J2270; J2405

== ENCOUNTER 2023-02-20 04:00 | Outpatient (CLI) | payer BC, SELFPAY ==
[2023-02-20 13:16] LABS: Abs Immature Grans 0.02 10^3/uL (0.0-0.06); Absolute Basophil Count 0.03 10^3/uL (0.0-0.2); Absolute Eosinophil Count 0.07 10^3/uL (0.0-0.7); Absolute Lymphocyte Count 2.31 10^3/uL (1.2-3.4); Absolute Monocyte Count 0.39 10^3/uL (0.1-0.8); Absolute Neutrophil Count 2.85 10^3/uL (1.2-6.7); Basophils % 0.5; Eosinophils % 1.2; HCT 41.4 % (40.0-50.0); HGB 14.1 g/dL (13.5-17.5); Immature Grans % 0.4; Lymphocytes % 40.7; MCH 29.9 pg (27.0-33.0); MCHC 34.1 % (32.0-36.0); MCV 88 fL (80-95); MPV 9.1 fL (8.0-11.0); Monocytes % 6.9; Neutrophils % 50.3; Platelet Count 203 10^3/uL (130-400); RBC 4.72 10^6/uL (4.36-5.78); RDW 12.1 % (11.8-14.1); RDW-SD 39.1 fL; WBC 5.67 10^3/uL (4.4-10.8)
[2023-02-20 13:47] LABS: Anion Gap 6.8 mmol/L (3-11); BUN 11 mg/dL (7-18); CO2 31.2 mmol/L (21.0-32.0); CREATININE 1.2 mg/dL (0.70-1.30); Calcium 9.2 mg/dL (8.5-10.1); Chloride 102 mmol/L (98-107); Estimated GFR 72.76 (mL/min/1.73m2); Glucose 93 mg/dL (74-106); Potassium 4.4 mmol/L (3.5-5.1); Sodium 140 mmol/L (136-145)
== END 2023-02-20 04:01 | disposition home or self-care (01) ==
LOC: LBO 04:00
PROVIDERS: Nurse Practitioner Family; PCP Nurse Practitioner Family; Visit Provider Nurse Practitioner Family
DX: D69.6 Thrombocytopenia, unspecified (principal); N18.31 Chronic kidney disease, stage 3a
CPT/HCPCS: 36415; 80048; 85025

== ENCOUNTER → 2023-02-28 03:05 | Outpatient (CLI) | payer BC, SELFPAY ==
--- NOTE | 2023-02-28 08:00 | DI.MRI_ITS ---
Exam(s) MR LUMBAR SPINE WO EXAM: MR LUMBAR SPINE WO CLINICAL HISTORY: low back pain,m54.50. TECHNIQUE: Multiplanar multisequence MRI of the Lumbar spine was performed. COMPARISON: CR XR LUMBAR SPINE COMPLETE from 01/30/2023 FINDINGS: Conus medullaris is at normal level. There is no evidence of conus mass nor subjacent clumping of in trathecal nerve roots to suggest arachnoiditis. The distal thecal sac appears unremarkable.There is no evidence of Tarlov intrasacral cysts nor other significant findings within the sacral canal Bones:There are no fractures nor ominous osseous lesions in the lumbar vertebral bodies and visualize d sacrum. With respect to the individual levels... T12-L1: Unremarkable L1-2: Mildly decreased disc height. There is a central-right paracentral disc herniation at this lev el which extends posteriorly 4 mm and indents the anterior mid and right side of the thecal sac. Oss eous central canal dimensions are lower normal. The disc protrusion extends upward behind the L1 malika tebral body for additions of 6 mm, slightly right of center.Disc herniation does not extend into the exiting neural foramen which are nicely patent bilaterally at this level. There is no facet arthropa thy. L2-3: This level exhibits moderate decreased disc height and there are lateral left osteophytes evide nt. There is broad annular bulging which extends into the floor of the exiting left neural foramen b ut without significant foraminal stenosis at this level on either side. Mild central canal stenosis. Facet joints at this level appear unremarkable. L3-4: Normal disc height. Broad annular bulging noted at this level with superimposed shallow sublig amentous disc protrusion which flattens the anterior aspect of the thecal sac resulting in mild centr al canal stenosis.Some annular bulging into the floor of the exiting neural foramina is noted but wit hout prominent foraminal stenosis on either side at this level and there are minimal if any significa nt degenerative changes in either facet joint at this level. L4-5: Normal disc height. Posteriorly there is annular bulging which is slightly asymmetric left of center with shallow disc protrusion at this level compressing the anterior thecal sac resulting in mi ld-moderate central spinal canal stenosis. This annular bulging is approximately 1.8 cm wide and max imum posterior extension is 4 mm. Annular bulging extends into the floor of the exiting left neural foramen but there is no true foraminal stenosis on either side at this level. There are mild facet j oint degenerative changes. L5-S1: This level exhibits normal disc height and signal but shallow posterolateral left disc protrus ion extending posteriorly 3 mm and approximately 1.3 cm wide. This slightly indents the anterior lef t side of the thecal sac. Central canal dimensions are lower normal at this level. Disc protrusion does not extend into the exiting neural foramen and there is no foraminal stenosis on either side at this level. There are mild degenerative changes in the facet joints. Soft tissues: paraspinal soft tissues appear unremarkable. IMPRESSION: 1. There relatively preserved disc height in the lumbosacral spine (with the exception of moderate de creased disc height at L2-3 level) however there are multilevel disc protrusions as described individ fortinoy above at the L2-3, L3-4, L4-5, and L5-S1 levels. There is mild central canal stenosis evident at L2-3, L3-4 and L4-5 levels. 2. There are minimal degenerative changes in the facet joints and there is no significant foraminal s tenosis on either side within the lumbosacral spinal canal. 3. No listhesis. No pars defects. No significant osseous lesions. DATA REPOSITORY:
== END ==
PROVIDERS: PCP Nurse Practitioner Family; Visit Provider Nurse Practitioner Family
DX: M51.36 Other intervertebral disc degeneration, lumbar region (principal); M48.061 Spinal stenosis, lumbar region without neurogenic claudication
CPT/HCPCS: 72148

== ENCOUNTER 2024-09-23 01:56 | Outpatient (CLI) | payer OTHER, SELFPAY ==
[2024-09-23 12:48] LABS: Hemoglobin A1C 5.1 % (<5.7)
[2024-09-23 12:49] LABS: ALT 28 U/L (16-63); AST 29 U/L (15-37); Alkaline Phosphatase 94 U/L (46-116); Anion Gap 6.7 mmol/L (3-11); BUN 20 mg/dL (7-18); CO2 30.3 mmol/L (21.0-32.0); CREATININE 1.5 mg/dL (0.70-1.30); Calcium 9.2 mg/dL (8.5-10.1); Calculated LDL 115 mg/dL (<100); Chloride 106 mmol/L (98-107); Cholesterol 189 mg/dL (<200); Estimated GFR 54.98 (mL/min/1.73m2); Glucose 90 mg/dL (74-106); HDL Cholesterol 59 mg/dL (>or=40); Potassium 4.2 mmol/L (3.5-5.1); Sodium 143 mmol/L (136-145); Total Protein 6.7 g/dL (6.4-8.2); Triglyceride 78 mg/dL (<150)
== END 2024-09-23 01:57 | disposition home or self-care (01) ==
LOC: LOS 01:56
PROVIDERS: PCP Nurse Practitioner Family; Visit Provider Nurse Practitioner Family
DX: Z13.220 Encounter for screening for lipoid disorders (principal); N18.31 Chronic kidney disease, stage 3a; Z13.1 Encounter for screening for diabetes mellitus
CPT/HCPCS: 36415; 80053; 80061; 83036

== ENCOUNTER 2024-10-05 09:50 | Emergency (ER) | payer OTHER, SELFPAY ==
[2024-10-05 09:57] VITALS: BP 136/83; PULSE 61; RESP 16; TEMP 36.6; O2SAT 98
[2024-10-05] MEDS: Acetaminophen 500 MG TAB 1000 MG PO (10:18)
[2024-10-05] MEDS: Cyclobenzaprine 10 MG TAB PO (10:18)
[2024-10-05] MEDS: Ketorolac 30 MG/ML VIAL IM (10:19)
[2024-10-05] MEDS: Lidocaine 5% Patch 1 PATCH TP (10:24)
--- NOTE | 2024-10-05 10:50 | W.ED.GENAD ---
Discharge Plan Disposition Patient Disposition: Home Condition: Stable Discharge Details Clinical Impression: Lumbar radicular pain Primary Care Provider: Fernie Julian ED Provider: Angel Caballero Home Meds and New Rx's Prescriptions: New cyclobenzaprine 10 mg tablet 10 mg PO TID PRN7 Days Qty: 30 0RF Continued tamsulosin [Flomax] 0.4 mg capsule 0.4 mg PO DAILY Qty: 90 4RF gabapentin 100 mg capsule 100 mg PO QHS Qty: 90 3RF Discharge Instructions Instructions: Cyclobenzaprine, Low Back Pain ED Additional Instructions: You were seen in the emergency department for your lumbar radicular back pain with likely muscle spasm. Please take 1000 mg of Tylenol every 6 hours, take 400 mg of ibuprofen snf between Tylenol dosings, apply kesw-vpb-ebnypiz lidocaine patch to the area, take the prescribed cyclobenzaprine for muscle relaxation 3 times per day as needed. Apply [id number]-[id number] Voltaren gel to the area of pain a couple times per day, follow-up with physical therapy for exercises to help with pain relief, please return for any urinary retention or bowel incontinence or neurovascular compromise of lower extremities. Stand Alone Forms: Physical Therapy Referral Referrals: Fernie Julian, PARTS ROOM ASSISTANT [Primary Care Provider] - Discharge Data Discharge Date/Time-TO BE ENTERED AT DEPARTURE: 10/05/24 12:03 HPI General Date/Time Provider Initiated Documentation: 10/05/24 10:02. HPI Narrative: 54 year-old male presents to ED today by POV/ambulating with his with a chief complaint of lower back pain through the R glute with onset over the past week, endorses history of short-duration back problems. Quality described as achiness, no radiation to shooting pains down the leg, urinary retention, bowel incontinence, saddle anesthesia, history of IVDU, fever, chest pain, shortness of breath, weakness/paresthesias to lower extremities. Severity is described as moderate. Palliating factors include has attempted OTC analgesics. Provoking factors include nothing specific. Events leading up to the incident/Associated Symptoms: Patient has been to physical therapy for similar in the past. Patient not anticoagulated. Related Data Home Medications ?Medication ?Instructions ?Recorded ?Confirmed tamsulosin 0.4 mg capsule (Flomax) 0.4 mg PO DAILY #90 caps 02/17/23 10/05/24 gabapentin 100 mg capsule 100 mg PO QHS #90 caps 09/18/24 10/05/24 cyclobenzaprine 10 mg tablet 10 mg PO TID PRN 7 days #30 tabs 10/05/24 Previous Rx's ?Medication ?Instructions ?Recorded tamsulosin 0.4 mg capsule (Flomax) 0.4 mg PO DAILY #90 caps 02/17/23 gabapentin 100 mg capsule 100 mg PO QHS #90 caps 09/18/24 cyclobenzaprine 10 mg tablet 10 mg PO TID PRN 7 days #30 tabs 10/05/24 Allergies Allergy/AdvReac Type Severity Reaction Status Date / Time No Known Allergies Allergy Verified 10/05/24 10:00 General Stated Complaint: Nk/Back Pain DEWEY: 3 Review of Systems All systems reviewed & are unremarkable except as noted in HPI and below Exam Narrative Exam Narrative: GENERAL APPEARANCE: Well-nourished, non-toxic, awake and alert, atraumatic, no acute distress. SKIN: Warm, pink, dry, intact, without rashes/lesions/ulcerations. HEAD: Normocephalic, atraumatic, normal hair distribution for gender/age. EYES: Normal conjunctiva, no exudates on lids/lashes. ENT: Nares patent, no circumoral cyanosis, no facial swelling NECK: Supple, trachea midline, painless cervical ROM. LUNGS/CHEST: Lungs CTA bilaterally, non-labored respirations, normal A/P diameter, symmetrical expansion, no chest wall deformity HEART (CV/PV): Regular rate and rhythm without murmur, no peripheral edema, no JVD. ABDOMEN: Soft, non-distended, no guarding, no CVA tenderness to percussion bilaterally. MSK: Normal ROM, no swelling/deformity to bilateral UEs or LEs, moving all extremities without weakness, no cyanosis, spine midline without tenderness, normal curvature, localized tenderness over the right SI joint with some mild tenderness in the right gluteal muscle, neurovascularly intact in bilateral lower extremities without saddle anesthesia NEURO: Mental Status AAOx4 - alert to person, place, time, events No facial droop, no forehead involvement. Motor: No focal weakness - strength 5/5 in bilateral UEs and LEs, proximal and distal, symmetric. Sensory: sensation intact to light touch globally. Gait normal: patient ambulated without ataxia into ED room. PSYCH: euthymic, cooperative, pleasant, appropriate speech Course Vital Signs Vital signs: Vital Signs Temperature 36.6 C 10/05/24 09:57 Pulse 61 10/05/24 09:57 Respiratory Rate 16 10/05/24 09:57 Blood Pressure 136/83 10/05/24 09:57 Pulse Oximetry 98 10/05/24 09:57 Temperature 36.6 C 10/05/24 09:57 Temperature Source Oral 10/05/24 09:57 Pulse 61 10/05/24 09:57 Respiratory Rate 16 10/05/24 09:57 Blood Pressure 136/83 10/05/24 09:57 Pulse Oximetry 98 10/05/24 09:57 Pain Level 8 10/05/24 10:19 Medical Decision Making This dictation utilizes [id number] dictation software and may contain unedited grammatical errors. 54 year-old male presents to ED today by POV/ambulating with his with a chief complaint of lower back pain through the R glute with onset over the past week, endorses history of short-duration back problems. Quality described as achiness, no radiation to shooting pains down the leg, urinary retention, bowel incontinence, saddle anesthesia, history of IVDU, fever, chest pain, shortness of breath, weakness/paresthesias to lower extremities, dysuria. Severity is described as moderate. Palliating factors include has attempted OTC analgesics. Provoking factors include nothing specific. Events leading up to the incident/Associated Symptoms: Patient has been to physical therapy for similar in the past. Patients' medical history: Low back pain, restless leg drome. Family and social history: Noncontributory. Pertinent exam findings / vital signs include right lumbar back pain over the SI joint radiating to the glutes, neurovascular intact in bilateral lower extremities, no saddle anesthesia, nontoxic and afebrile, benign cardiopulmonary. Differential / pathologies of concern include sciatica sacroiliitis, not IVDU related spinal epidural abscess or cauda equina. Diagnostic studies of: -None. Interventions of: -Skeletal muscle relaxer of cyclobenzaprine, Tylenol, Toradol, Lidoderm patch, PT referral. ED Course/Assessment/Plan: 54-year-old otherwise healthy male presents with 1 week of right lower back pain, suspect lumbar radicular pathology, recommend follow-up with physical therapy for definitive treatment, I did provide a prescription for cyclobenzaprine and recommend therapeutic dosing of Tylenol and ibuprofen as well as OTC Lidoderm patching, strict return criteria for any urinary retention, back pain with fever, neurovascular compromise of lower extremities. Findings not consistent with cauda equina, spinal epidural abscess, renal pathology. Disposition of lumbar radicular pain. Patient verbalized understanding of the plan and return to ED criteria and engaged in shared decision making. Medical Records Medical records reviewed: Yes I reviewed the patient's medical records. Quality:[facility] Health Related Social Needs: Health related social needs feeling lonely/isolated (Z60.8) [facility] All Active Problems (Updated 10/05/24 @ 11:53 by WENDY Guevara) Lumbar radicular pain (Acute) Bradycardia (Acute) Low back pain (Acute) Anaplasmosis (Acute ~01/2023) Restless leg syndrome (Acute) Uses canibus to control. 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 Acute flank pain History of sigmoidoscopy (~10/16/20) attempted Colonscopy, could only get to sigmoid, pt to be scheduled for barium enema. Hx of fracture of ankle Left Fracture, talus closed Osteochondral defect of talus (~12/2017) Repaired by surgery in 2020 Calculus of kidney Left wrist fracture Posterior dislocation of shoulder joint Surgical History Status post vasectomy Venipuncture 05/23/16-[facility] [place] [facility] Aguilar's Neuroma Removal 05/2016;[facility] [place] Family History Mother No problems noted. Father BPH (benign prostatic hypertrophy) Alcohol abuse Sister No problems noted. Brother No problems noted. Maternal Grandfather , AGE 80 No problems noted. Paternal Grandfather , AGE 66 Alcohol abuse Maternal Grandmother , AGE 84 No problems noted. Paternal Grandmother , AGE 72 No problems noted. Son No problems noted. Daughter No problems noted. Daughter No problems noted. 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 Pets and animals: Yes Pets and animals: cat(s) and dog(s) Sexually active: Yes Current gender identity: male What is your relationship status?: How often do you talk on the phone with friends or family?: three or more times per week How often do you get together with friends or relatives?: once per week How often do you attend latter-day or jainism services?: decline to answer Do you belong to any clubs or organized social groups?: no Panel score (0-1 are the most socially isolated patients): 2 What type of physical activity do you participate in: running Duration: 45-60 minutes/day Frequency: 5-6 times per week Karina/Hinduism: None Special karina needs: No Seatbelt use: always Helmet use: Yes Helmet use: always Drive intox or ride w/intox company 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
[2024-10-05 12:03] VITALS: BP 128/74; PULSE 68; RESP 16; TEMP 37.1; O2SAT 98
== END 2024-10-05 12:03 | disposition home or self-care (01) ==
PROVIDERS: Emergency Provider Physician Assistant; PCP Nurse Practitioner Family
DX: M54.16 Radiculopathy, lumbar region (principal); M18.31 Unilateral post-traumatic osteoarthritis of first carpometacarpal joint, right hand
CPT/HCPCS: 96372; 99284; 99283; J1885